=== PATIENT | male | born 1990 | race Caucasian/White ===

== ENCOUNTER → 2021-07-08 16:00 | Outpatient (CLI) | payer MEDICAID, SELFPAY ==
[2021-07-08 19:07] LABS: Basophils # 0.1 K/mm3 (0-0.2); Basophils % 1.3 % (0.1-2.0); Eosinophils # 0.2 K/mm3 (0.0-0.4); Eosinophils % 2.8 % (0.1-12.0); Hematocrit 45.5 % (42.0-52.0); Hemoglobin 15.3 g/dL (14.1-18.0); Lymphocytes # 1.2 K/mm3 (0.7-4.5); Lymphocytes % 21.8 % (10-50); Mean Corpuscular HGB Conc 33.5 g/dL (31.8-35.4); Mean Corpuscular Hemoglobin 31.5 pg (27.0-31.2); Mean Corpuscular Volume 93.8 fl (80-94); Mean Platelet Volume 8.9 fl (7.4-10.4); Monocytes # 0.2 K/mm3 (0.1-1.0); Monocytes % 4.2 % (1.7-9.3); Platelet Count 351 K/mm3 (142-424); Red Blood Count 4.85 M/mm3 (4.60-6.20); Red Cell Distribution Width 13.9 % (11.5-17.5); White Blood Count 5.7 K/mm3 (4.8-10.8)
[2021-07-08 19:11] LABS: Alanine Aminotransferase 46 U/L (12-78); Albumin Level 4.5 g/dl (3.5-5.0); Alkaline Phosphatase 76 U/L (38-126); Anion Gap 11.9 mEq/L (5-15); Aspartate Amino Transferase 31 U/L (17-59); Bilirubin,Total 0.8 mg/dl (0.2-1.3); Blood Urea Nitrogen 6 mg/dl (9-20); Calcium 9.9 mg/dl (8.4-10.2); Carbon Dioxide 29 mmol/L (22.0-30.0); Chloride 101 mmol/L (98-107); Chol/HDL Ratio 2.3 (1-3.5); Cholesterol 164 mg/dl (140-200); Estimated Glomerular Filt Rate 114 ml/min (>60); GFR (African American) 137 ML/MIN (>60); Globulin 2.3 g/dL (1.3-3.2); Glucose 105 mg/dl (74-100); HDL Cholesterol 70 mg/dl (40-60); Potassium 3.9 mmoL/L (3.5-5.1); Sodium 138 mmol/L (136-145); Total Protein,Serum 6.8 g/dl (6.3-8.2); Triglycerides 61 mg/dl (30-150); VLDL Cholesterol 12 mg/dL (0-40)
[2021-07-08 19:22] LABS: Direct LDL Cholesterol 71.82 mg/dL (100-129)
[2021-07-08 19:28] LABS: T4 (Thyroxine) 7.3 ug/dl (5.53-11.0)
[2021-07-08 19:29] LABS: 25-OH Vitamin D, Total 22.2 ng/mL (30-100)
[2021-07-08 19:42] LABS: Thyroid Stimulating Hormone 0.34 uIU/mL (0.465-4.68)
== END ==
PROVIDERS: Visit Provider Nurse Practitioner Family
DX: K46.9 Unspecified abdominal hernia without obstruction or gangrene (principal); N63.0 Unspecified lump in unspecified breast; R91.1 Solitary pulmonary nodule; E55.9 Vitamin D deficiency, unspecified
CPT/HCPCS: 80053; 80061; 82306; 84436; 84443; 85025

== ENCOUNTER → 2021-07-25 09:44 | Outpatient (CLI) | payer MEDICAID, SELFPAY ==
--- NOTE | 2021-07-25 09:48 | CT_ITS ---
FINAL REPORT TECHNIQUE: Thin section axial images were obtained from the lung apices through the upper abdomen without contrast. This study was performed with techniques to keep radiation doses as low as reasonably achievable (ALARA). Individualized dose reduction techniques using automated exposure control or adjustment of mA and/or kV according to the patient's size were employed. CLINICAL HISTORY: Abnormal Chest CT, nonsmoker, no chest complaints FINDINGS: There is no mediastinal, hilar, or axillary lymphadenopathy. There is no pleural or pericardial effusion. A small hiatal hernia is present. There is a 3 mm subpleural left lower lobe nodule on image 64. The lungs are otherwise clear. There is no consolidation. Limited, unenhanced evaluation of the upper abdomen demonstrates a small left adrenal nodule. There is no acute osseous abnormality. IMPRESSION: No acute intrathoracic abnormality. Tiny subpleural left lower lobe nodule likely of no significance. Left adrenal nodule is likely an adenoma in the absence of known malignancy. Reviewed, Interpreted and Dictated by Irene Floyd MD Transcribed by Robbi Negro Authenticated by Irene Floyd MD on 07/25/2021 11:06:51 AM [facility]
== END ==
PROVIDERS: PCP Emergency Medicine; Visit Provider Nurse Practitioner Family
DX: R91.1 Solitary pulmonary nodule (principal)
CPT/HCPCS: 71250

== ENCOUNTER → 2021-09-15 13:41 | Outpatient (CLI) | payer MEDICAID, SELFPAY ==
--- NOTE | 2021-09-15 13:44 | MM_ITS ---
PROCEDURE INFORMATION: Exam: Bilateral Diagnostic Breast Tomosynthesis Exam date and time: 09/15/2021 1:43 PM Age: 30 years old Clinical indication: The patient states that he is felt numerous bilateral breast nodules since he was a kid. Bilateral breast palpable lumps TECHNIQUE: Imaging protocol: Bilateral Diagnostic tomosynthesis and 2D mammography including computer-aided detection (CAD) when performed. Unilateral or bilateral exam. COMPARISON: No relevant prior studies available. FINDINGS: MAMMOGRAPHY: There are scattered areas of fibroglandular density. No mass, architectural distortion, or suspicious calcifications have developed to suggest malignancy. No axillary adenopathy. IMPRESSION: No mammographic evidence of malignancy. Clinical follow-up is recommended regarding the patient's numerous bilateral palpable lumps. If a new or dominant palpable lump were to developed, then targeted ultrasound could be considered for further characterization ASSESSMENT: BI-RADS Category 1: Negative
== END ==
PROVIDERS: PCP Emergency Medicine; Visit Provider Nurse Practitioner Family
DX: N62 Hypertrophy of breast (principal); N63.10 Unspecified lump in the right breast, unspecified quadrant; N63.20 Unspecified lump in the left breast, unspecified quadrant
CPT/HCPCS: 77062; 77066; G0279

== ENCOUNTER 2021-12-01 16:53 | Emergency (ER) | payer MEDICAID, SELFPAY ==
[2021-12-01 17:00] VITALS: BP 135/92; PULSE 95; RESP 16; TEMP 36.9; O2SAT 98; BMI 29.6
--- NOTE | 2021-12-01 17:11 | EXP.UTC ---
Discharge Plan Disposition Patient Disposition: Home, Self-Care Condition: Good Prescriptions Prescriptions: New methylprednisolone 4 mg Tablets,Dose Pack 4 mg PO DIRECTED Qty: 21 0RF azithromycin [Zithromax] 250 mg tablet 250 mg PO UD DOSE PK Qty: 6 0RF Rx Instructions: Take two (2) tablets today, then one (1) tablet days #2 thru #5 No Action cholecalciferol (vitamin D3) 1,250 mcg (50,000 unit) tablet 1,250 mcg PO WEEKLY Qty: 7 2RF cholecalciferol (vitamin D3) 50 mcg (2,000 unit) capsule 50 mcg PO DAILY 30 Days Qty: 30 4RF Referrals Follow up/Referrals: Amari Galeana MD [Primary Care Provider] - See instructions Activity Restrictions/Add. Instructions Additional Instructions/Restrictions: Drink plenty of fluids. Take tylenol or ibuprofen for pain or fever. Take the medications as directed. Follow up with your regular doctor. GO TO THE ER FOR ANY WORSENING SYMPTOMS Clinical Impressions Clinical Impression: Pharyngitis Instructions Patient Instructions: Strep Throat, DI for Strep Throat Discharge ED Provider: Seth Gunderson [facility] General Stated complaint: mouth and throat pain Mode of Arrival: Ambulatory Source of Information: Patient Limitations: No Limitations Time Seen by Provider: 12/01/21 17:09 Description of Symptoms (Recalled from Triage Doc. by RN): PATIENT C/O SORE THROAT, FEVER AND HEADACHE THAT STARTED ON WEDNESDAY HEENT Symptoms (Recalled from RN notes): Yes Resp Symptoms (Recalled from RN notes): No Skin Symptoms (Recalled from RN notes): No MS Symptoms (Recalled from RN notes): No Functional Status (Recalled from RN notes): WNL History of Present Illness Provider Complaint: He states that he has had a sore throat for the past 2 days. Related Data Previous Rx's Medication Instructions Recorded cholecalciferol (vitamin D3) 1,250 1,250 mcg PO WEEKLY #7 tabs 07/09/21 mcg (50,000 unit) tablet cholecalciferol (vitamin D3) 50 50 mcg PO DAILY 30 days #30 caps 07/09/21 mcg (2,000 unit) capsule azithromycin 250 mg tablet 250 mg PO UD DOSE PK #6 tabs 12/01/21 (Zithromax) methylprednisolone 4 mg tablets in 4 mg PO DIRECTED #21 tabs 12/01/21 a dose pack Allergies Allergy/AdvReac Type Severity Reaction Status Date / Time Penicillins [PENICILLINS] Allergy Intermediate Verified 08/19/21 10:27 fluoxetine [From Prozac] Allergy Mild Hives Verified 08/19/21 10:27 sertraline [From Zoloft] Allergy Mild Hives Verified 08/19/21 10:27 Worker's Comp Is this a Worker's Comp case?: No PFSH PFSH Medical History Anxiety Depression Migraine Social History Smoking Status: Never smoker alcohol intake: current substance use type: denies use current occupational status: unemployed Travel in the last 8 weeks: None household members: family housing: house ROS Obtained: Yes All systems reviewed & no additional complaints except as documented Constitutional Constitutional: Reports chills and Reports fever(s) Eyes Eyes: Denies eye discharge ENT Ears, Nose, Mouth, and Throat: Reports as per HPI Cardiovascular Cardiovascular: Denies chest pain Respiratory Respiratory: Denies chest congestion and Reports cough Gastrointestinal Gastrointestingal: Reports nausea; Denies abdominal pain, constipation, cramping, diarrhea or vomiting Musculoskeletal Musculoskeletal: Denies arthralgias Integumentary/Breasts Skin/Breast: Denies rash Neurologic Neurologic: Denies paresthesias Physical Exam General General appearance: alert and in no apparent distress Head Head exam: atraumatic, normocephalic and normal inspection Eye Eye exam: Present normal appearance, PERRL and EOMI ENT ENT exam: Present mucous membranes moist and normal external ear exam Expanded ENT Exam TM/Canal exam: Bilateral TM: erythema and bulging Nose exam: Absent sin
[2021-12-01 17:19] LABS: UTC Strep Screen (Rapid) Negative (Negative)
[2021-12-01 17:48] VITALS: BP 135/92; PULSE 95; RESP 16; TEMP 36.9; O2SAT 98
== END 2021-12-01 17:51 | disposition home or self-care (01) ==
PROVIDERS: Emergency Provider Nurse Practitioner Family; PCP Emergency Medicine
DX: J02.9 Acute pharyngitis, unspecified (principal); R50.9 Fever, unspecified; G43.909 Migraine, unspecified, not intractable, without status migrainosus; F32.A Depression, unspecified; F41.9 Anxiety disorder, unspecified; Z79.52 Long term (current) use of systemic steroids; Z88.0 Allergy status to penicillin; Z88.1 Allergy status to other antibiotic agents; Z88.3 Allergy status to other anti-infective agents; Z88.8 Allergy status to other drugs, medicaments and biological substances
CPT/HCPCS: 87880; 99213; G0463

== ENCOUNTER → 2022-03-19 11:00 | Outpatient (CLI) | payer MEDICAID, SELFPAY | PROVIDERS: PCP Nurse Practitioner Family; Visit Provider Nurse Practitioner Family | DX: N50.819 Testicular pain, unspecified (principal) | CPT/HCPCS: 87086 ==

== ENCOUNTER → 2022-03-31 10:20 | Outpatient (CLI) | payer MEDICAID, SELFPAY ==
--- NOTE | 2022-03-31 10:20 | US_ITS ---
FINAL REPORT TECHNIQUE: Ultrasound images of the testicles were obtained bilaterally. Color Doppler images were obtained. CLINICAL HISTORY: .rt test pain x 2 mos FINDINGS: The testicles are normal in size and echotexture bilaterally. Arterial flow is identified bilaterally. No intratesticular masses are identified. There is a small epididymal cyst in the right epididymis. IMPRESSION: Small right epididymal cyst, otherwise unremarkable. Reviewed, Interpreted and Dictated by Satinder Law III, MD Transcribed by Kaylee Faith Authenticated and [facility]
== END ==
PROVIDERS: PCP Nurse Practitioner Family; Visit Provider Nurse Practitioner Family
DX: N50.811 Right testicular pain (principal)
CPT/HCPCS: 76870

== ENCOUNTER 2023-04-10 10:23 | Inpatient (IN) | payer MEDICAID, SELFPAY ==
[2023-04-10] VITALS (13 sets, daily range): BP systolic 89–120; BP diastolic 44–70; PULSE 51–70; RESP 10–21; TEMP 36.7–36.9; O2SAT 97–100; BMI 21.5
--- NOTE | 2023-04-10 10:39 | PC.NURSE ---
Dr. Perkins at BS
--- NOTE | 2023-04-10 10:45 | PC.NURSE ---
pt unable to urinate and RN bladder scanned and it showed 500ml
[2023-04-10 10:47] LABS: Alanine Aminotransferase 87 U/L (12-78); Albumin Level 4.6 g/dl (3.5-5.0); Albumin/Globulin Ratio 1.4 (1.1-1.8); Alkaline Phosphatase 133 U/L (38-126); Aspartate Amino Transferase 65 U/L (17-59); Bilirubin,Total 0.9 mg/dl (0.2-1.3); Blood Urea Nitrogen 14 mg/dl (9-20); Calcium 9.6 mg/dl (8.4-10.2); Carbon Dioxide 23 mmol/L (22.0-30.0); Chloride 105 mmol/L (98-107); Creatinine Clearance Estimated 102 mL/min (50-200); Estimated Glomerular Filt Rate 87 ml/min (>60); GFR (African American) 105 ML/MIN (>60); Globulin 3.4 g/dL (1.3-3.2); Glucose 133 mg/dl (74-100); Sodium 140 mmol/L (136-145)
[2023-04-10 10:50] LABS: Basophils # 0.1 K/mm3 (0-0.2); Basophils % 0.3 % (0.1-2.0); Eosinophils # 0.2 K/mm3 (0.0-0.4); Eosinophils % 1.1 % (0.1-12.0); Hematocrit 47.1 % (42.0-52.0); Hemoglobin 16.5 g/dL (14.1-18.0); Lymphocytes # 1.2 K/mm3 (0.7-4.5); Lymphocytes % 7.3 % (10-50); Mean Corpuscular HGB Conc 35.1 g/dL (31.8-35.4); Mean Corpuscular Hemoglobin 31.1 pg (27.0-31.2); Mean Corpuscular Volume 88.6 fl (80-94); Mean Platelet Volume 8.9 fl (7.4-10.4); Monocytes # 0.8 K/mm3 (0.1-1.0); Monocytes % 4.8 % (1.7-9.3); Neutrophils # 13.7 K/mm3 (1.8-7.8); Neutrophils % 86.4 % (37.0-80.0); Platelet Count 459 K/mm3 (142-424); Red Blood Count 5.31 M/mm3 (4.60-6.20); Red Cell Distribution Width 15.2 % (11.5-17.5); White Blood Count 15.9 K/mm3 (4.8-10.8)
--- NOTE | 2023-04-10 10:50 | ED_ITS ---
Discharge Plan Disposition Chief Complaint: Weakness Clinical Impressions Clinical Impression: Hypokalemic periodic paralysis Discharge ED Provider: Tammy Perkins General Adult HPI General Chief complaint: Weakness Stated complaint: Weakness Time Seen by Provider: 04/10/23 10:30 Mode of Arrival: EMS Source of Information: Patient and EMS Limitations: No Limitations Description of Symptoms (Recalled from ER Triage Doc. by RN): pt states on wednesday he noticed cramping his shoulders and it has slowly gotten worse througho ut the week and began cramping all over his body. today he was unable to stand due to weakness, fatigue, pt denies any injuries or PMH. ems gave 4 mg zofran and 500 ml NS bolus en route History of Present Illness HPI narrative: Is a 32-year-old male previously healthy who had a preceding upper respiratory viral infection last week with some congestion he started having some cramping on Wednesday of this week with progressive weakness in bilateral upper and lower extremities. Upper extremities are weaker out of proportion to his lower extremities. All 4 extremities are involved and have been progressively worsening. States his left lower extremity is a little bit stronger than his right. He is to the point now he cannot walk. States he has normal sensation. Denies any history of severe anxiety or stress vomiting diarrhea etc. No history of severe electrolyte abnormalities in the past or any other medical problems. Related Data Allergies Allergy/AdvReac Type Severity Reaction Status Date / Time Penicillins [PENICILLINS] Allergy Intermediate Verified 03/19/22 15:45 fluoxetine [From Prozac] Allergy Mild Hives Verified 03/19/22 15:45 sertraline [From Zoloft] Allergy Mild Hives Verified 03/19/22 15:45 PFSH PFSH Disclaimer: The information contained in this section may have been updated after the patient was seen, as this information can be updated by other users. Medical History Anxiety Depression Migraine Social History Smoking Status: Never smoker alcohol intake: current substance use type: denies use current occupational status: unemployed Travel in the last 8 weeks: None household members: family housing: house ROS Obtained: Yes All systems reviewed & no additional complaints except as documented Physical Exam General General appearance: alert Respiratory Respiratory exam: Present normal lung sounds bilaterally Cardiovascular Cardiovascular exam: Present bradycardia Neurological Exam Neurological exam: Present other (3 out of 5 strength in proximal and distal muscles in the upper extremities bilaterally 3-5 strength in the right lower extremity 4-5 strength left lower extremity sensory exam is normal he is a reflexive in the upper extremities has normal reflexes bilateral lower extremities) Medical Decision Making Augusto Inquiry Pt receiving controlled substance: No Vital Signs: 04/10/23 10:24 04/10/23 11:00 Temperature 98.0 F Temperature Source Oral Pulse Rate 53 L Pulse Rate [Right Radial] 60 Respiratory Rate 18 11 L Blood Pressure 120/67 Blood Pressure [Right Arm] 116/70 Blood Pressure Mean [Right Arm] 85 02 Sat by Pulse Oximetry 100 99 Oxygen Delivery Method Room Air Room Air Lab Data Lab results reviewed: Yes I reviewed the patient's lab results. Lab Results 04/10/23 10:30: WBC 15.9 H, RBC 5.31, Hgb 16.5, Hct 47.1, MCV 88.6, MCH 31.1, MCHC 35.1, RDW 15.2, Plt Count 459 H, MPV 8.9, Neut % (Auto) 86.4 H, Lymph % (Auto) 7.3 L, [place] % (Auto) 4.8, Eos % (Auto) 1.1, Baso % (Auto) 0.3, Neut # (Auto) 13.7 H, Lymph # (Auto) 1.2, [place] # (Auto) 0.8, Eos # (Auto) 0.2, Baso # (Auto) 0.1, Sodium 140, Potassium 1.7 L*, Chloride 105, Carbon Dioxide 23, Anion Gap 13.7, BUN 14, Creatinine 1.00, Estimated Creat Clear 102, Estimated GFR 87, Est GFR ( Amer) 105, Glucose 133 H, Calcium 9.6, Phosphorus 1.9 L, Magnesium 2.3, Total Bilirubin 0.9, AST 65 H, ALT 87 H, Alkaline Phosphatase 133 H, Total Creatine Kinase 921 H*, Troponin I 0.05 H, C-Reactive Protein 14.6 H, Total Protein 8.0, Albumin 4.6, Globulin 3.4 H, Albumin/Globulin Ratio 1.4 04/10/23 10:57: Urine Color Yellow, Urine Appearance Clear, Urine pH 7.5, Ur Specific [place] 1.010, Urine Protein 1+, Urine Glucose (UA) Negative, Urine Ketones Negative, Urine Blood Trace-i, Urine Nitrate Negative, Urine Bilirubin Negative, Urine Urobilinogen 0.2, Ur Leukocyte Esterase Negative 04/10/23 10:30 04/10/23 10:30 Orders (Tests/Meds): ED MEDICATIONS Generic Name Dose Route Start Last Admin Trade Name Freq PRN Reason Stop Dose Admin Potassium Chloride 30 meq 04/10/23 11:12 04/10/23 11:29 Potassium Chloride 20meq/15ml Udc PO 05/10/23 11:11 30 meq [id number] PRN Administration MUSCLE WEAKNESS ORDERS Category Date Time Status CK [Creatine Kinase] Stat Lab 04/10/23 10:30 Completed CRP [C-Reactive Protein] Stat Lab 04/10/23 10:30 Completed Complete Blood Count Auto Diff Stat Lab 04/10/23 10:30 Results Comprehensive Metabolic Panel Stat Lab 04/10/23 10:30 Completed ESR [Erythrocyte Sedimentation Rate] Stat Lab 04/10/23 10:30 Received Full Resp Panel w/COVID ([facility]) Routine Lab 04/10/23 11:15 Received Magnesium Stat Lab 04/10/23 10:30 Completed Phosphorous Stat Lab 04/10/23 10:30 Completed Troponin I Q3H Lab 04/10/23 13:45 Ordered Troponin I Q3H Lab 04/10/23 16:45 Ordered Troponin I Stat Lab 04/10/23 10:30 Completed UA [Urinalysis and Microscopic] Stat Lab 04/10/23 10:57 Results Medical Decision Narrative: Patient is a 32-year-old male presenting today with progressive muscular weakness in the bilateral upper and lower extremities. He is a reflexive in his upper extremities has some urinary retention also has relatively preserved sensory exam. This is consistent with Guillain-Hill? syndrome. Will get basic blood work including inflammatory markers and metabolic analysis to make sure this is not also paralysis from hypokalemia etc. Will anticipate doing a lumbar puncture and possibly transferring the patient for definitive care for this as we do not offer the services at [facility]. Reassessment 11:34 AM. Patient has a critically low potassium this is consistent with hypokalemic periodic paralysis making Guillain-Hill? less likely. Will replace potassium 30 mill equivalents every 30 minutes until symptoms resolve. Speaking to the patient further his father had a similar episode earlier in life which makes this most likely a familial issue. He has never had an episode before. EKG was performed to person interpreted shows sinus bradycardia with a ventricular rate of 47 there is a sinus pause I do not see any dropped beats no acute ischemic changes noted there is a normal axis. Patient will need to remain on a body maker machine setter and will need to be admitted for serial monitoring of his potassium and ensure resolution of his symptoms. Guillain-Hill? is less likely as are other neurologic related conditions at this point. But not completely ruled out. Will admit the patient for replacement of potassium and cardiac monitoring. Critical Care Critical Care Time Critical Care Time: Yes Attestation: On 04/10/23, the high probability of a clinically significant, sudden or life threatening deterioration of the following system(s) required my full and direct attention, intervention and personal management. The time I documented below is in addition to time spent performing reported procedures but includes the following listed in this critical care notation. Total Time Total Critical Care Time: 35
[2023-04-10 10:55] LABS: Anion Gap 13.7 mEq/L (5-15); MANUAL DIFFERENTIAL MANUAL DIFFERENTIAL (MANUAL DIFF); Potassium 1.7 mmoL/L (3.5-5.1)
--- NOTE | 2023-04-10 10:55 | ECG_ITS ---
APPROVED REPORT Exam: Resting ECG HR:47 bpm ECG Measurements Heart Rate 47 AXES QRSd 109 QRS 87 QT 271 T 76 QTc 234 Conclusion SINUS BRADYCARDIA WITH 2ND DEGREE AV BLOCK, 2:1 OR MOBITZ TYPE II NONSPECIFIC T-WAVE ABNORMALITY CRITICAL TEST RESULT UNCONFIRMED REPORT Electronically signed by : Sylvain Alston MD 04/10/2023 19:52:58
[2023-04-10 10:59] LABS: Troponin I 0.05 ng/ml (0.00-0.034)
[2023-04-10] MEDS: POTASSIUM CHLORIDE 10MEQ CAPSULE.ER 10 MEQ PO (11:00)
[2023-04-10] MEDS: POTASSIUM CHLORIDE 20MEQ TAB 20 MEQ PO (11:00)
[2023-04-10 11:03] LABS: Creatine Kinase 921 U/L (55-170)
[2023-04-10 11:04] LABS: Magnesium 2.3 mg/dl (1.6-2.3)
[2023-04-10 11:06] LABS: Phosphorous 1.9 mg/dl (2.5-4.5)
--- NOTE | 2023-04-10 11:08 | PC.NURSE ---
LAB called to report critical phosphorus of 1.9 to Bubba Mark RN. Repeated and confirmed.
[2023-04-10 11:09] LABS: C-Reactive Protein 14.6 mg/L (0-4)
[2023-04-10 11:19] LABS: Microscopic, Urine URINE MICROSCOPIC (MICROSCOPIC)
[2023-04-10 11:21] LABS: Adenovirus,PCR Not Detected (NotDetected); Coronavirus 19, PCR Not Detected (NotDetected); Coronavirus 229E Not Detected (NotDetected); Coronavirus NL63 Not Detected (NotDetected); Coronavirus OC43 Not Detected (NotDetected); Coronovirus HKU1,PCR Not Detected (NotDetected); Human Metapneumovirus Not Detected (NotDetected); Influenza A, PCR Not Detected (NotDetected); Influenza AH1, 2009 Not Detected (NotDetected); Influenza AH1, PCR Not Detected (NotDetected); Influenza AH3,PCR Not Detected (NotDetected); Influenza B, PCR Not Detected (NotDetected); Parainfluenza 1, PCR Not Detected (NotDetected); Parainfluenza 2, PCR Not Detected (NotDetected); Parainfluenza 3, PCR Not Detected (NotDetected); Parainfluenza 4, PCR Not Detected (NotDetected); Respiratory Syncytial Virus Not Detected (NotDetected); Rhinovirus/Enterovirus Not Detected (NotDetected)
[2023-04-10 11:23] LABS: Appearance,Urine CLEAR (Clear); Bilirubin,Urine Negative (Negative); Blood, Urine TRACE-I (Negative); Color,Urine YELLOW (Yellow); Glucose,Urine (UA) Negative (Negative); Ketones,Urine Negative (Negative); Leukocyte Esterase,Urine Negative (Negative); Nitrate,Urine Negative (Negative); PH,Urine 7.5 (5.0-8.5); Protein,Urine 1+ (Negative); Urobilinogen,Urine 0.2 EU/dl (0.2)
[2023-04-10] MEDS: POTASSIUM CHLORIDE 20MEQ/15ML UDC 30 MEQ PO ×7 (11:29→16:14)
[2023-04-10 11:34] LABS: Lymphocytes % 9 % (10-50); Monocytes % 3 % (2-9); Neutrophils % 88 % (42-76); RBC Morphology Normal; Total Cells Counted 100
[2023-04-10 11:35] LABS: Bacteria,Urine Trace /lpf; RBC,Urine Occasional #/hpf (0-3); Squamous Epithelial Cell,Urine Occasional #/hpf (0-5)
[2023-04-10 11:36] LABS: Platelet Estimate Slight Increase
--- NOTE | 2023-04-10 11:51 | PC.NURSE ---
CANAL STRUCTURE OPERATOR NOTIFIED OF ADMISSION
--- NOTE | 2023-04-10 12:00 | P.HP_ITS ---
History of Present Illness *Admission Date: 04/10/23 *Reason for visit:: weakness, ascending paralysis, muscle cramps *History of present illness: Mr. Treviño is a 32-year-old male with previously benign past medical history. States that for the past week he has been noticing cramping that has progressed and gotten worse. Began in his shoulders and his legs. Has progressed with weakness in his legs and over the past 2 days having weakness in his arms. Came to the ER for further evaluation. Denies chest pain, shortness of breath, nausea or vomiting. Can move his toes but legs are very heavy and unable to walk. Does report an illness maybe a week ago with some congestion. Denies any fever or headache. ER concern for Guillain-Hill? initially. Workup showed severely depleted potassium at 1.7. Phosphorus 1.9. Patient does have reflexes in the lower extremities and movement of his feet. No respiratory distress. Symptoms most consistent with hypokalemic periodic paralysis. Initiated on oral repletion and medicine was consulted for admission. On arrival to the floor, patient is stable on room air. Tolerating p.o. intake with no nausea or vomiting. Monitoring on telemetry. Family at bedside. Reports his dad had a similar episode many years ago but no other known family history. [facility] Disclaimer: The information contained in this section may have been updated after the patient was seen, as this information can be updated by other users. Medical History Anxiety Depression IBS (irritable bowel syndrome) Male circumcision Migraine Family History [place] War syndrome Heart murmur VSD (ventricular septal defect) Hypokalemia Social History Smoking Status: Never smoker alcohol intake: former substance use type: denies use current occupational status: unemployed Travel in the last 8 weeks: None household members: family housing: house Review of Systems Review of Systems Review of systems (narrative): 14 point review of systems performed, pertinent positives and negatives as per HPI Meds Home Medications and Allergies Home Medications Medication Instructions Recorded Confirmed Type oxybutynin chloride 5 mg 5 mg PO DAILY URINARY SYMPTOMS 04/10/23 04/10/23 History tablet,extended release 24 hr New Prescriptions to Start Prescriptions: Allergies Allergy/AdvReac Type Severity Reaction Status Date / Time Penicillins [PENICILLINS] Allergy Intermediate Verified 03/19/22 15:45 fluoxetine [From Prozac] Allergy Mild Hives Verified 03/19/22 15:45 sertraline [From Zoloft] Allergy Mild Hives Verified 03/19/22 15:45 Exam Data for Last 24 hours Vital signs and Labs for Last 24 Hours: Temp Pulse Resp BP Pulse Ox O2 Del Method 98.0 F 53 L 11 L 120/67 99 Room Air 04/10/23 10:24 04/10/23 11:00 04/10/23 11:00 04/10/23 11:00 04/10/23 11:00 04/10/23 11:00 Laboratory Results - last 24 hr 04/10/23 10:30: WBC 15.9 H, RBC 5.31, Hgb 16.5, Hct 47.1, MCV 88.6, MCH 31.1, MCHC 35.1, RDW 15.2, Plt Count 459 H, MPV 8.9, Neut % (Auto) 86.4 H, Lymph % (Auto) 7.3 L, [place] % (Auto) 4.8, Eos % (Auto) 1.1, Baso % (Auto) 0.3, Neut # (Auto) 13.7 H, Lymph # (Auto) 1.2, [place] # (Auto) 0.8, Eos # (Auto) 0.2, Baso # (Auto) 0.1, Total Counted 100, Neutrophils % (Manual) 88 H, Lymphocytes % (Manual) 9 L, Monocytes % (Manual) 3, Platelet Estimate Slight increase, RBC Morphology Normal, Sodium 140, Potassium 1.7 L*, Chloride 105, Carbon Dioxide 23, Anion Gap 13.7, BUN 14, Creatinine 1.00, Estimated Creat Clear 102, Estimated GFR 87, Est GFR ( Amer) 105, Glucose 133 H, Calcium 9.6, Phosphorus 1.9 L, Magnesium 2.3, Total Bilirubin 0.9, AST 65 H, ALT 87 H, Alkaline Phosphatase 133 H, Total Creatine Kinase 921 H*, Troponin I 0.05 H, C- Reactive Protein 14.6 H, Total Protein 8.0, Albumin 4.6, Globulin 3.4 H, Albumin/Globulin Ratio 1.4 04/10/23 10:57: Urine Color Yellow, Urine Appearance Clear, Urine pH 7.5, Ur Specific [place] 1.010, Urine Protein 1+, Urine Glucose (UA) Negative, Urine Ketones Negative, Urine Blood Trace-i, Urine Nitrate Negative, Urine Bilirubin Negative, Urine Urobilinogen 0.2, Ur Leukocyte Esterase Negative, Urine RBC Occasional, Urine WBC None, Ur Squamous Epith Cells Occasional, Urine Bacteria Trace I & O for Last 24 hours: Intake & Output 04/07/23 04/08/23 04/09/23 04/10/23 23:59 23:59 23:59 23:59 Weight 68.039 kg Constitutional Constitutional: mild distress, average body habitus and cooperative *Routine HEENT Exam Head: Present normocephalic Eye: Present EOMI and PERRL ENT: Present mucous membranes moist *Routine Neck Exam Neck: Present supple; Absent lymphadenopathy *Routine Respiratory Exam Respiratory: Present CTA bilaterally *Routine Cardiovascular Exam Cardiovascular: Present RRR *Routine Abdominal Exam Abdominal: Present soft and normoactive bowel sounds; Absent tenderness *Routine Rectal Exam Rectal:: deferred *Routine Genitalia Exam Genitalia:: deferred *Routine Extremities Exam Extremities: Absent cyanosis, clubbing or edema Comments: Weak *Routine Skin Exam Skin: Present warm; Absent rash *Routine Neurological Exam Neurological: Present alert, oriented X3, motor deficit, normal reflexes and moving all extremities; Absent sensory deficit or altered mental status Comments: Generalized weakness in upper and lower extremities, unable to stand. Can wiggle toes, globally strength 3/5 in upper and lower extremities, human resources analyst strength 4/5. Assessment and Plan *Assessment and plan (1) Hypokalemic periodic paralysis: Status: Acute Category: Medical Code(s): G72.3 - Periodic paralysis (2) Generalized weakness: Status: Acute Category: Medical Code(s): R53.1 - Weakness (3) Hypophosphatasia: Status: Acute Category: Medical Code(s): E83.39 - Other disorders of phosphorus metabolism Plan 32-year-old male who presents with progressive ascending weakness. Severely depleted potassium and phosphorus. Concern for periodic paralysis due to hypokalemia. Discussed case with ER, request admission for aggressive repletion and monitoring for respiratory or cardiac collapse. Patient admitted to stepdown level of care. Continues to require inpatient management. Problems addressed as follows: Hypokalemic periodic paralysis Generalized weakness Hypophosphatemia -Potassium 1.7, phosphorus 1.9. Aggressive repletion with 30 mEq every 30 minutes x 10. Repeat labs in 6 hours to evaluate potassium and phosphorus level. Will obtain magnesium level at that time -Repeat CBC, CMP, magnesium ordered for the morning -respiratory consulted for negative inspiratory force evaluation -IV K-Phos for phosphorus repletion -Vitamin D level pending in the morning -Elevated CK likely related to electrolyte disturbances and paralysis -Repeat CK ordered for the morning Regular diet Full code
[2023-04-10 12:08] LABS: Erythrocyte Sedimentation Rate 21 mm/hr (0-15)
[2023-04-10] MEDS: POTASSIUM PHOSPHATE 9 MMOL in 0.9 % SODIUM CHLORIDE 250 ML 63.75 MMOL IV (12:20)
--- NOTE | 2023-04-10 12:36 | PC.NURSE ---
Gave report to rashad HILTON and answered all questions
--- NOTE | 2023-04-10 12:55 | PC.NURSE ---
Pt admitted to hospitalist with hypokalemic paralysis, stepdown
--- NOTE | 2023-04-10 13:00 | PC.NURSE ---
PT ADMITTED TO 217 FROM ED VIA STRETCHER, PT HAS CARNES CATHETER IN PLACE AND BILATERAL PIV'S, PT ALERT AND ORIENTED, PT HAS GROSS MOTOR BUT NOT MUCH FINE MOTOR SKILLS, PT VERY WEAK AND UNABLE TO HOLD EXTREMITIES UP ON OWN, PT'S RIGHT PUPIL LARGER THAN LEFT BUT BOTH BRISK AND REACTIVE, PLACED PT ON TELEMETRY, FAMILY MEDICINE RESIDENT ASKING PT ADMISSION QUESTIONS AT THIS TIME, CALL LIGHT WITHIN REACH
--- NOTE | 2023-04-10 13:11 | PC.NURSE ---
MD HERNANDEZ ROUNDING AT BEDSIDE, SPEAKING WITH PT AND FAMILY MEMBER AT BEDSIDE
--- NOTE | 2023-04-10 13:15 | HMH.PHAINT1 ---
Pharmacy Intervention Comments: MEDICATION RECONCILIATION COMPLETE USING EXTERNAL PHARMACY FILL HISTORY.
[2023-04-10 14:26] LABS: Troponin I 0.06 ng/ml (0.00-0.034)
[2023-04-10] MEDS: ONDANSETRON 4MG/2ML VIAL 4 MG IV (16:46)
--- NOTE | 2023-04-10 16:56 | PC.NURSE ---
Oral potassium opened for administration. Pt then started vomiting. Total of 180ml emesis. PO potassium held and thrown away at this time. Lab now in room to get bloodwork.
[2023-04-10 17:18] LABS: Anion Gap 8.2 mEq/L (5-15); Blood Urea Nitrogen 12 mg/dl (9-20); Calcium 8.4 mg/dl (8.4-10.2); Carbon Dioxide 18 mmol/L (22.0-30.0); Chloride 115 mmol/L (98-107); Creatinine Clearance Estimated 128 mL/min (50-200); Estimated Glomerular Filt Rate 112 ml/min (>60); GFR (African American) 136 ML/MIN (>60); Glucose 124 mg/dl (74-100); Magnesium 2.4 mg/dl (1.6-2.3); Sodium 139 mmol/L (136-145)
[2023-04-10 17:21] LABS: Phosphorous 1.8 mg/dl (2.5-4.5); Potassium 2.2 mmoL/L (3.5-5.1)
[2023-04-10 17:29] LABS: Troponin I 0.06 ng/ml (0.00-0.034)
[2023-04-10] MEDS: PROMETHAZINE HCL 25MG/ML 1ML VIAL 25 MG IV (18:32)
[2023-04-10] MEDS: SODIUM CHLORIDE 0.9% 25ML BAG 25 ML IV (18:32)
[2023-04-10] MEDS: KCl 10mEq/100ml 100 ML 100 MEQ IV ×3 (19:02→21:20)
[2023-04-10] MEDS: CALCIUM CARBONATE 500MG CHEWTAB 500 MG PO (19:03)
[2023-04-10] MEDS: POTASSIUM PHOSPHATE 15 MMOL in 0.9 % SODIUM CHLORIDE 250 ML 63.75 MMOL IV (19:14)
[2023-04-10] MEDS: GABAPENTIN 100MG CAPSULE 100 MG PO (20:10)
[2023-04-10 21:28] LABS: Free T4 (Free Thyroxine) 0.86 ng/dl (0.78-2.19)
[2023-04-11] VITALS (18 sets, daily range): BP systolic 80–115; BP diastolic 42–73; PULSE 40–100; RESP 13–21; TEMP 36.4–36.8; O2SAT 97–100; BMI 21.4
[2023-04-11] MEDS: PROMETHAZINE HCL 25MG/ML 1ML VIAL 25 MG IV (00:24)
[2023-04-11] MEDS: 0.9 % SODIUM CHLORIDE 1000ML 500 ML 999 ML IV (00:30)
[2023-04-11 00:37] LABS: Anion Gap 9.6 mEq/L (5-15); Blood Urea Nitrogen 11 mg/dl (9-20); Calcium 8.6 mg/dl (8.4-10.2); Carbon Dioxide 18 mmol/L (22.0-30.0); Chloride 114 mmol/L (98-107); Creatinine Clearance Estimated 128 mL/min (50-200); Estimated Glomerular Filt Rate 112 ml/min (>60); GFR (African American) 136 ML/MIN (>60); Glucose 104 mg/dl (74-100); Magnesium 2.4 mg/dl (1.6-2.3); Phosphorous 2.5 mg/dl (2.5-4.5); Sodium 140 mmol/L (136-145)
[2023-04-11 00:40] LABS: Potassium 1.6 mmoL/L (3.5-5.1)
[2023-04-11] MEDS: KCl 20mEq/100ml 100 ML 50 MEQ IV ×3 (01:02→04:40)
[2023-04-11] MEDS: 0.9% NaCl w/40mEq KCL 1,000 ML 100 ML IV ×3 (01:02→21:30)
--- NOTE | 2023-04-11 06:16 | PC.NURSE ---
MAT GAUGER HAS BEEN MADE AWARE OF HYPOTENSION MULTIPLE TIMES; 1 NS BOLUS WAS GIVEN; SEE MAR. MAT GAUGER MADE AWARE OF CONTINUING HYPOTENSION @ 0615 DURING ROUNDS; NO NEW ORDERS AT THIS TIME
--- NOTE | 2023-04-11 08:15 | EXP.ACUTE.PN ---
Subjective *Date: 04/11/23 *Time: 18:19 Interval history: Having some improvement in lower extremity weakness, pain improving. Legs feel less tingly. Improving strength. Nausea improved. Afebrile. Tolerating p.o. intake. Medical Exam Vital signs and Labs for Last 24 Hours: Vital Signs Temp Pulse Pulse Resp BP BP Pulse Ox 04/11/23 08:00 48 L 18 92/61 L 100 04/11/23 07:00 47 L 93/52 L 100 04/11/23 06:00 50 L 13 83/45 L 99 04/11/23 05:00 63 15 96/53 L 99 04/11/23 04:00 97.5 F L 62 14 80/50 L 99 04/11/23 03:00 53 L 15 88/50 L 98 04/11/23 02:00 46 L 15 89/47 L 98 04/11/23 01:00 90/53 L 04/11/23 00:00 98.1 F 43 L 15 87/42 L 99 04/10/23 23:00 100/44 L 04/10/23 22:00 51 L 15 89/48 L 97 04/10/23 21:00 95/49 L 04/10/23 20:00 98.4 F 54 L 14 101/57 L 99 04/11/23 05:00 04/11/23 03:00 04/11/23 04:00 46 L 15 80/50 L 98 04/11/23 04:00 04/11/23 04:00 50 L 04/11/23 01:00 04/11/23 02:00 46 L 15 89/47 L 98 04/11/23 00:00 98.1 F 43 L 14 87/42 L 99 04/10/23 23:00 04/10/23 22:00 51 L 17 89/48 L 97 04/10/23 21:00 04/10/23 20:00 98.4 F 54 L 17 101/57 L 04/10/23 20:00 04/10/23 18:46 04/10/23 18:00 67 21 101/64 L 97 04/10/23 16:00 64 17 105/69 L 98 04/10/23 16:00 70 04/10/23 16:44 04/10/23 16:00 98.0 F 04/10/23 14:59 100 04/10/23 14:57 04/10/23 14:00 61 21 98/57 L 99 04/10/23 13:00 04/10/23 12:46 98.0 F 54 L 16 105/53 L 04/10/23 12:30 54 L 12 105/53 L 99 04/10/23 11:30 52 L 10 L 95/54 L 98 04/10/23 11:00 53 L 11 L 120/67 99 04/10/23 10:24 98.0 F 60 18 116/70 100 O2 Del Method O2 Flow Rate 04/11/23 08:00 Room Air 04/11/23 07:00 Room Air 04/11/23 06:00 Room Air 04/11/23 05:00 Room Air 04/11/23 04:00 Room Air 04/11/23 03:00 Room Air 04/11/23 02:00 Room Air 04/11/23 01:00 04/11/23 00:00 Room Air 04/10/23 23:00 04/10/23 22:00 Room Air 04/10/23 21:00 04/10/23 20:00 Room Air 04/11/23 05:00 Room Air 04/11/23 03:00 Room Air 04/11/23 04:00 Room Air 04/11/23 04:00 Room Air 04/11/23 04:00 04/11/23 01:00 Room Air 04/11/23 02:00 Room Air 04/11/23 00:00 Room Air 04/10/23 23:00 Nasal Cannula 2 04/10/23 22:00 Nasal Cannula 2 04/10/23 21:00 Room Air 04/10/23 20:00 04/10/23 20:00 Room Air 04/10/23 18:46 Room Air 04/10/23 18:00 Room Air 04/10/23 16:00 Room Air 04/10/23 16:00 04/10/23 16:44 Room Air 04/10/23 16:00 04/10/23 14:59 Room Air 04/10/23 14:57 Room Air 04/10/23 14:00 Room Air 04/10/23 13:00 Room Air 04/10/23 12:46 Room Air 04/10/23 12:30 Room Air 04/10/23 11:30 Room Air 04/10/23 11:00 Room Air 04/10/23 10:24 Room Air Intake and Output 04/10/23 04/11/23 04/11/23 23:59 07:59 15:59 Intake Total 880 / 880 Output Total 880 / 880 1450 / 1450 Balance 0 / 0 -1450 / -1450 Intake: Intake, Oral Amount 630 / 630 Intake, Total IV Amount 250 / 250 Potassium Phosphate 9 mmol In 0 250 / 250 .9 % Sodium Chloride 250 ml @ 63.75 mls/hr IV ONCE ONE Rx#: [id number] Output: Output, Urine Amount 525 / 525 1450 / 1450 Output, Emesis Amount 180 / 180 Output, Urine Amount (Catheter) 175 / 175 Gleason 175 / 175 Other: Number of Unmeasured Voids 0 Weight 68.039 kg Patient Weight 04/11/23 23:59 Weight 68.039 kg Laboratory Results - last 24 hr 04/10/23 10:30: WBC 15.9 H, RBC 5.31, Hgb 16.5, Hct 47.1, MCV 88.6, MCH 31.1, MCHC 35.1, RDW 15.2, Plt Count 459 H, MPV 8.9, Neut % (Auto) 86.4 H, Lymph % (Auto) 7.3 L, [place] % (Auto) 4.8, Eos % (Auto) 1.1, Baso % (Auto) 0.3, Neut # (Auto) 13.7 H, Lymph # (Auto) 1.2, [place] # (Auto) 0.8, Eos # (Auto) 0.2, Baso # (Auto) 0.1, Total Counted 100, Neutrophils % (Manual) 88 H, Lymphocytes % (Manual) 9 L, Monocytes % (Manual) 3, Platelet Estimate Slight increase, RBC Morphology Normal, ESR 21 H, Sodium 140, Potassium 1.7 L*, Chloride 105, Carbon Dioxide 23, Anion Gap 13.7, BUN 14, Creatinine 1.00, Estimated Creat Clear 102, Estimated GFR 87, Est GFR ( Amer) 105, Glucose 133 H, Calcium 9.6, Phosphorus 1.9 L, Magnesium 2.3, Total Bilirubin 0.9, AST 65 H, ALT 87 H, Alkaline Phosphatase 133 H, Total Creatine Kinase 921 H*, Troponin I 0.05 H, C-Reactive Protein 14.6 H, Total Protein 8.0, Albumin 4.6, Globulin 3.4 H, Albumin/Globulin Ratio 1.4 04/10/23 10:57: Urine Color Yellow, Urine Appearance Clear, Urine pH 7.5, Ur Specific [place] 1.010, Urine Protein 1+, Urine Glucose (UA) Negative, Urine Ketones Negative, Urine Blood Trace-i, Urine Nitrate Negative, Urine Bilirubin Negative, Urine Urobilinogen 0.2, Ur Leukocyte Esterase Negative, Urine RBC Occasional, Urine WBC None, Ur Squamous Epith Cells Occasional, Urine Bacteria Trace 04/10/23 11:15: Chlamy pneumoniae PCR TNP, Adenovirus (PCR) Not detected, B. pertussis DNA (PCR) TNP, Coronavirus OC43 (PCR) Not detected, Coronavirus HKU1 (PCR) Not detected, Coronavirus 229E (PCR) Not detected, SARS-CoV-2 (PCR) Not detected, Coronavirus NL63 (PCR) Not detected, Human Metapneumovir PCR Not detected, Influenza A (H1) PCR Not detected, Influ A (H1N1/09) PCR Not detected, Influenza A (H3) PCR Not detected, Influenza Type A (PCR) Not detected, Influenza Type B (PCR) Not detected, M. pneumoniae (PCR) TNP, Parainfluenza 1 (PCR) Not detected, Parainfluenza 2 (PCR) Not detected, Parainfluenza 3 (PCR) Not detected, Parainfluenza 4 (PCR) Not detected, RSV (PCR) Not detected, Entero/Rhino (PCR) Not detected 04/10/23 13:45: Troponin I 0.06 H, Free T4 0.86 04/10/23 16:50: Sodium 139, Potassium 2.2 L* D, Chloride 115 H, Carbon Dioxide 18 L, Anion Gap 8.2, BUN 12, Creatinine 0.80, Estimated Creat Clear 128, Estimated GFR 112, Est GFR ( Amer) 136 D, Glucose 124 H, Calcium 8.4, Phosphorus 1.8 L, Magnesium 2.4 H, Troponin I 0.06 H 04/11/23 00:19: Sodium 140, Potassium 1.6 L* D, Chloride 114 H, Carbon Dioxide 18 L, Anion Gap 9.6, BUN 11, Creatinine 0.80, Estimated Creat Clear 128, Estimated GFR 112, Est GFR ( Amer) 136, Glucose 104 H, Calcium 8.6, Phosphorus 2.5 D, Magnesium 2.4 H I & O for Labs for Last 24 Hours: Intake & Output 04/08/23 04/09/23 04/10/23 04/11/23 23:59 23:59 23:59 23:59 Intake Total 880 / 880 Output Total 880 / 880 1450 / 1450 Balance 0 / 0 -1450 / -1450 Weight 68.039 kg 68.039 kg Constitutional: Present no acute distress, thin, chronically ill appearing and cooperative Head: Present atraumatic and normocephalic Respiratory: Present normal respiratory effort; Absent rhonchi, wheezes or crackles Cardiac: Present Reg Rate and Rhythm GI: Present soft and normal bowel sounds; Absent distention or tenderness Extremities: Present normal inspection and full ROM; Absent edema Skin: Present intact; Absent erythema Neuro: Present Grossly Intact, alert, awake, oriented x 3 and moves all extremities Comment:: Strength 4/5 globally but improving. No tenderness with squeezing calves bilaterally. Assessment and Plan *Assessment and plan (1) Hypokalemic periodic paralysis: Status: Acute Category: Medical Code(s): G72.3 - Periodic paralysis (2) Generalized weakness: Status: Acute Category: Medical Code(s): R53.1 - Weakness (3) Hypophosphatasia: Status: Acute Category: Medical Code(s): E83.39 - Other disorders of phosphorus metabolism (4) Vitamin D deficiency: Status: Acute Category: Medical Code(s): E55.9 - Vitamin D deficiency, unspecified Plan 32-year-old male who presents with progressive ascending weakness. Severely depleted potassium and phosphorus. Concern for periodic paralysis due to hypokalemia. Discussed case with ER, request admission for aggressive repletion and monitoring for respiratory or cardiac collapse. Patient admitted to stepdown level of care. Continues to require inpatient management. Problems addressed as follows: Hypokalemic periodic paralysis Generalized weakness Hypophosphatemia -Potassium 2.0, phosphorus 2.5. Aggressive repletion with 20 mEq orally hourly x 10. Repeat potassium levels every 8 hours. Repeat phosphorus level this afternoon. Magnesium normal at 2.3. -Continue monitoring on telemetry, high risk for decompensation or cardiac arrhythmia. - Repeat CBC, CMP, magnesium ordered for the morning -IV K-Phos for phosphorus repletion 9 mmol this morning. -TSH levels normal. No signs of hyper or hypothyroid. -Repeat CK elevated 879. Repeat CK level ordered for the morning Vitamin D deficiency, vitamin D less than 12.8. Will initiate 50,000 units weekly Regular diet Full code
[2023-04-11 10:59] LABS: Basophils % 0.3 % (0.1-2.0); Eosinophils # 0.2 K/mm3 (0.0-0.4); Eosinophils % 2.9 % (0.1-12.0); Hematocrit 31.5 % (42.0-52.0); Lymphocytes # 1.9 K/mm3 (0.7-4.5); Lymphocytes % 23.5 % (10-50); Mean Corpuscular Hemoglobin 36.8 pg (27.0-31.2); Mean Corpuscular Volume 90.5 fl (80-94); Mean Platelet Volume 8.5 fl (7.4-10.4); Monocytes # 0.4 K/mm3 (0.1-1.0); Monocytes % 5.5 % (1.7-9.3); Neutrophils # 5.4 K/mm3 (1.8-7.8); Neutrophils % 67.9 % (37.0-80.0); Platelet Count 266 K/mm3 (142-424); Red Blood Count 3.48 M/mm3 (4.60-6.20); Red Cell Distribution Width 15.8 % (11.5-17.5); White Blood Count 7.9 K/mm3 (4.8-10.8)
[2023-04-11 11:01] LABS: Chloride 115 mmol/L (98-107); Sodium 141 mmol/L (136-145)
[2023-04-11 11:03] LABS: Alanine Aminotransferase 64 U/L (12-78); Aspartate Amino Transferase 55 U/L (17-59); Blood Urea Nitrogen 7 mg/dl (9-20); Carbon Dioxide 19 mmol/L (22.0-30.0); Creatine Kinase 879 U/L (55-170); Creatinine Clearance Estimated 128 mL/min (50-200); Estimated Glomerular Filt Rate 112 ml/min (>60); GFR (African American) 136 ML/MIN (>60)
[2023-04-11 11:04] LABS: Albumin Level 3.1 g/dl (3.5-5.0); Albumin/Globulin Ratio 1.2 (1.1-1.8); Alkaline Phosphatase 73 U/L (38-126); Bilirubin,Total 0.6 mg/dl (0.2-1.3); Globulin 2.6 g/dL (1.3-3.2); Glucose 109 mg/dl (74-100); Magnesium 2.3 mg/dl (1.6-2.3); Phosphorous 2.5 mg/dl (2.5-4.5); Total Protein,Serum 5.7 g/dl (6.3-8.2)
[2023-04-11 11:06] LABS: Mean Corpuscular HGB Conc 40.6 g/dL (31.8-35.4)
[2023-04-11 11:11] LABS: Hemoglobin 12.9 g/dL (14.1-18.0)
[2023-04-11 11:51] LABS: 25-OH Vitamin D, Total < 12.8 ng/mL (30-100)
[2023-04-11] MEDS: POTASSIUM CHLORIDE 20MEQ TAB 20 MEQ PO ×10 (12:34→20:18)
[2023-04-11] MEDS: POTASSIUM CHLORIDE 10 MEQ, LIDOCAINE HCL/PF 3 ML in 0.9 % SODIUM CHLORIDE 100 ML 108 MEQ IV ×3 (12:34→15:00)
[2023-04-11] MEDS: ERGOCALCIFEROL 50,000 UNITS (1.25MG) CAPSULE 50000 UNIT PO (15:33)
[2023-04-11 16:16] LABS: Chloride 118 mmol/L (98-107); Sodium 143 mmol/L (136-145)
[2023-04-11 16:20] LABS: Anion Gap 12.4 mEq/L (5-15); Blood Urea Nitrogen 6 mg/dl (9-20); Carbon Dioxide 15 mmol/L (22.0-30.0); Creatinine Clearance Estimated 146 mL/min (50-200); Estimated Glomerular Filt Rate 131 ml/min (>60); GFR (African American) 158 ML/MIN (>60); Glucose 120 mg/dl (74-100)
[2023-04-11 16:39] LABS: Potassium 2.4 mmoL/L (3.5-5.1)
--- NOTE | 2023-04-11 17:00 | PC.NURSE ---
spoke with MD regarding potassium results. nno
--- NOTE | 2023-04-11 17:58 | PC.NURSE ---
calderon discontinued. Pt is now up in the chair. clothes changed. SBA with transfer to chair.
[2023-04-11] MEDS: GABAPENTIN 100MG CAPSULE 100 MG PO (20:18)
[2023-04-11 22:18] LABS: Chloride 119 mmol/L (98-107); Potassium 3.4 mmoL/L (3.5-5.1); Sodium 141 mmol/L (136-145)
[2023-04-11 22:21] LABS: Anion Gap 6.4 mEq/L (5-15); Blood Urea Nitrogen 4 mg/dl (9-20); Calcium 7.9 mg/dl (8.4-10.2); Carbon Dioxide 19 mmol/L (22.0-30.0); Creatinine Clearance Estimated 146 mL/min (50-200); Estimated Glomerular Filt Rate 131 ml/min (>60); GFR (African American) 158 ML/MIN (>60); Glucose 98 mg/dl (74-100)
[2023-04-12] VITALS: BP 100/59; PULSE 60; PULSE 84; RESP 18; TEMP 36.6; O2SAT 98
[2023-04-12 04:00] VITALS: BP 109/62; PULSE 60; PULSE 77; RESP 20; TEMP 36.5; O2SAT 98; BMI 21.4
[2023-04-12 07:13] LABS: Basophils % 0.5 % (0.1-2.0); Eosinophils # 0.5 K/mm3 (0.0-0.4); Eosinophils % 5.3 % (0.1-12.0); Hematocrit 37.9 % (42.0-52.0); Hemoglobin 13.2 g/dL (14.1-18.0); Lymphocytes # 1.9 K/mm3 (0.7-4.5); Lymphocytes % 22.6 % (10-50); Mean Corpuscular HGB Conc 34.9 g/dL (31.8-35.4); Mean Corpuscular Hemoglobin 32.3 pg (27.0-31.2); Mean Corpuscular Volume 92.4 fl (80-94); Mean Platelet Volume 8.7 fl (7.4-10.4); Monocytes # 0.3 K/mm3 (0.1-1.0); Neutrophils # 5.7 K/mm3 (1.8-7.8); Neutrophils % 67.6 % (37.0-80.0); Platelet Count 319 K/mm3 (142-424); Red Cell Distribution Width 15.9 % (11.5-17.5); White Blood Count 8.5 K/mm3 (4.8-10.8)
[2023-04-12 08:00] VITALS: BP 113/66; PULSE 70; PULSE 74; RESP 16; TEMP 36.6; O2SAT 97
[2023-04-12 08:29] LABS: Chloride 122 mmol/L (98-107); Sodium 144 mmol/L (136-145)
[2023-04-12 08:30] LABS: Potassium 3.6 mmoL/L (3.5-5.1)
[2023-04-12 08:32] LABS: Alanine Aminotransferase 63 U/L (12-78); Albumin/Globulin Ratio 1.1 (1.1-1.8); Alkaline Phosphatase 80 U/L (38-126); Anion Gap 8.6 mEq/L (5-15); Aspartate Amino Transferase 84 U/L (17-59); Bilirubin,Total 0.6 mg/dl (0.2-1.3); Blood Urea Nitrogen 3 mg/dl (9-20); Carbon Dioxide 17 mmol/L (22.0-30.0); Creatinine Clearance Estimated 128 mL/min (50-200); Estimated Glomerular Filt Rate 112 ml/min (>60); GFR (African American) 136 ML/MIN (>60); Globulin 2.7 g/dL (1.3-3.2); Phosphorous 2.7 mg/dl (2.5-4.5); Total Protein,Serum 5.7 g/dl (6.3-8.2)
[2023-04-12 08:33] LABS: Calcium 8.2 mg/dl (8.4-10.2); Glucose 94 mg/dl (74-100); Magnesium 2.2 mg/dl (1.6-2.3)
[2023-04-12] MEDS: FOLIC ACID 1MG TABLET 1 MG PO (08:37)
[2023-04-12] MEDS: 0.9% NaCl w/40mEq KCL 1,000 ML 100 ML IV (08:37)
[2023-04-12 11:26] LABS: Vitamin B12 359 pg/mL (239-931)
[2023-04-12 12:00] VITALS: BP 105/66; PULSE 70; PULSE 77; RESP 16; O2SAT 100
[2023-04-12 12:10] LABS: Triiodothyronine (T3) Free 2.2 pg/mL (2.0-4.4)
[2023-04-12 14:24] LABS: Anion Gap 11.2 mEq/L (5-15); Blood Urea Nitrogen 2 mg/dl (9-20); Calcium 8.9 mg/dl (8.4-10.2); Carbon Dioxide 20 mmol/L (22.0-30.0); Chloride 117 mmol/L (98-107); Creatinine Clearance Estimated 128 mL/min (50-200); Estimated Glomerular Filt Rate 112 ml/min (>60); GFR (African American) 136 ML/MIN (>60); Glucose 93 mg/dl (74-100); Potassium 3.2 mmoL/L (3.5-5.1); Sodium 145 mmol/L (136-145)
--- NOTE | 2023-04-12 14:26 | P.DS_ITS ---
General Admission date:: 04/10/23 Discharge date: 04/12/23 HPI HPI HPI: Mr. Treviño is a 32-year-old male with previously benign past medical history. States that for the past week he has been noticing cramping that has progressed and gotten worse. Began in his shoulders and his legs. Has progressed with weakness in his legs and over the past 2 days having weakness in his arms. Came to the ER for further evaluation. Denies chest pain, shortness of breath, nausea or vomiting. Can move his toes but legs are very heavy and unable to walk. Does report an illness maybe a week ago with some congestion. Denies any fever or headache. ER concern for Guillain-Hill? initially. Workup showed severely depleted potassium at 1.7. Phosphorus 1.9. Patient does have reflexes in the lower extremities and movement of his feet. No respiratory distress. Symptoms most consistent with hypokalemic periodic paralysis. Initiated on oral repletion and medicine was consulted for admission. On arrival to the floor, patient is stable on room air. Tolerating p.o. intake with no nausea or vomiting. Monitoring on telemetry. Family at bedside. Reports his dad had a similar episode many years ago but no other known family history. Hospital Course Hospital Course Hospital Course: 32-year-old male who presents with progressive ascending weakness. Severely depleted potassium and phosphorus. Concern for periodic paralysis due to hypokalemia. Discussed case with ER, request admission for aggressive repletion and monitoring for respiratory or cardiac collapse. Patient admitted to stepdown level of care. Had gradual improvement in his potassium level. Differential diagnosis included Guillain-Hill? initially on admission however patient was globally weak and had normal respiratory effort/neph. Symptoms improved with potassium supplementation. Stable for discharge home. Problems addressed as follows: Hypokalemic paralysis Generalized weakness Hypophosphatemia -Patient presented with severely depleted potassium 1.7. Experiencing global weakness and inability to ambulate. Found to also have deficiencies in phosphorus and severe vitamin D deficiency. Was aggressively treated with oral and IV potassium replacement. Took over 48 hours for potassium to improve to the point that patient was above 3 and able to ambulate independently. Phosphorus levels corrected with IV potassium phosphate. Encouraged patient to eat which improved during his admission. Was monitored on telemetry due to high risk for decompensation and cardiac arrhythmia. Other screening labs including TSH showed that there was no hyper or hypothyroidism. Had mild rhabdomyolysis, likely secondary to paralysis and electrolyte disturbances. CK improving by day of discharge. Making adequate urine. No signs of kidney injury with normal creatinine. Differential diagnosis includes hypokalemic periodic paralysis, nutritional deficiency.suspect his hypokalemia underlies his paralysis but without genetic evidence to prove hypokalemic periodic paralysis, and this being his first episode, suspect condition mainly from severely restrictive diet. Patient states he is very picky, family provided additional information states that the patient has lost significant weight over the past year and eats very few things, avoids vegetables. Will continue multivitamin, recommended Flintstones as he cannot swallow pills and this is a chewable vitamin. Continue potassium supplementation. Discussed potassium rich foods including potatoes, tomatoes, bananas. Patient does like fruits. Recommend close follow-up with PCP with repeat labs in a week to monitor electrolytes. Stable for discharge home given persistent levels of potassium above 3 over 24 hours with minimal oral supplementation. Vitamin D deficiency, vitamin D less than 12.8. Initiate 50,000 units weekly. Continue at discharge. Exam Data for Last 24 hours Vital signs and Labs for Last 24 Hours: Temp Pulse Resp BP Pulse Ox O2 Del Method O2 Flow Rate 97.8 F 77 16 105/66 L 100 Room Air 2 04/12/23 08:00 04/12/23 12:00 04/12/23 12:00 04/12/23 12:00 04/12/23 12:00 04/12/23 13:00 04/10/23 23:00 Laboratory Results - last 24 hr 04/11/23 10:30: Free T3 2.2 04/11/23 15:15: Sodium 143, Potassium 2.4 L*, Chloride 118 H, Carbon Dioxide 15 L, Anion Gap 12.4, BUN 6 L, Creatinine 0.70, Estimated Creat Clear 146, Estimated GFR 131, Est GFR ( Amer) 158, Glucose 120 H, Calcium 8.0 L 04/11/23 22:00: Sodium 141, Potassium 3.4 L D, Chloride 119 H, Carbon Dioxide 19 L, Anion Gap 6.4, BUN 4 L D, Creatinine 0.70, Estimated Creat Clear 146, Estimated GFR 131, Est GFR ( Amer) 158, Glucose 98, Calcium 7.9 L 04/12/23 06:33: WBC 8.5, RBC 4.10 L, Hgb 13.2 L, Hct 37.9 L, MCV 92.4, MCH 32.3 H, MCHC 34.9, RDW 15.9, Plt Count 319, MPV 8.7, Neut % (Auto) 67.6, Lymph % (Auto) 22.6, [place] % (Auto) 4.0, Eos % (Auto) 5.3, Baso % (Auto) 0.5, Neut # (Auto) 5.7, Lymph # (Auto) 1.9, [place] # (Auto) 0.3, Eos # (Auto) 0.5 H, Baso # (Auto) 0.0, Sodium 144, Potassium 3.6, Chloride 122 H, Carbon Dioxide 17 L, Anion Gap 8.6, BUN 3 L, Creatinine 0.80, Estimated Creat Clear 128, Estimated GFR 112, Est GFR ( Amer) 136, Glucose 94, Calcium 8.2 L, Phosphorus 2.7, Magnesium 2.2, Total Bilirubin 0.6, AST 84 H D, ALT 63, Alkaline Phosphatase 80, Total Protein 5.7 L, Albumin 3.0 L, Globulin 2.7, Albumin/Globulin Ratio 1.1, Vitamin B12 359 I & O for Last 24 hours: Intake & Output 04/09/23 04/10/23 04/11/23 04/12/23 23:59 23:59 23:59 23:59 Intake Total 880 / 880 713 / 713 780 / 780 Output Total 880 / 880 3300 / 3550 850 / 850 Balance 0 / 0 -2587 / -2837 -70 / -70 Weight 68.039 kg 68.039 kg 68.039 kg Constitutional Constitutional: no acute distress, thin, chronically ill appearing and cooperative *Routine HEENT Exam Head: Present normocephalic Eye: Present EOMI and PERRL ENT: Present mucous membranes moist *Routine Neck Exam Neck: Present supple; Absent lymphadenopathy *Routine Respiratory Exam Respiratory: Present CTA bilaterally; Absent rhonchi, wheezes or crackles *Routine Cardiovascular Exam Cardiovascular: Present RRR *Routine Abdominal Exam Abdominal: Present soft and normoactive bowel sounds; Absent tenderness *Routine Extremities Exam Extremities: Absent cyanosis, clubbing or edema *Routine Skin Exam Skin: Present warm; Absent rash *Routine Neurological Exam Neurological: Present alert and oriented X3 Results Data Completed and Pending Labs on day of discharge: Labs from last 24 hours 04/12/23 04/11/23 04/11/23 06:33 22:00 15:15 WBC 8.5 RBC 4.10 L Hgb 13.2 L Hct 37.9 L MCV 92.4 MCH 32.3 H MCHC 34.9 RDW 15.9 Plt Count 319 MPV 8.7 Neut % (Auto) 67.6 Lymph % (Auto) 22.6 [place] % (Auto) 4.0 Eos % (Auto) 5.3 Baso % (Auto) 0.5 Neut # (Auto) 5.7 Lymph # (Auto) 1.9 [place] # (Auto) 0.3 Eos # (Auto) 0.5 H Baso # (Auto) 0.0 Sodium 144 141 143 Potassium 3.6 3.4 L D 2.4 L* Chloride 122 H 119 H 118 H Carbon Dioxide 17 L 19 L 15 L Anion Gap 8.6 6.4 12.4 BUN 3 L 4 L D 6 L Creatinine 0.80 0.70 0.70 Estimated Creat Clear 128 146 146 Estimated GFR 112 131 131 Est GFR ( Amer) 136 158 158 Glucose 94 98 120 H Calcium 8.2 L 7.9 L 8.0 L Phosphorus 2.7 Magnesium 2.2 Total Bilirubin 0.6 AST 84 H D ALT 63 Alkaline Phosphatase 80 Total Protein 5.7 L Albumin 3.0 L Globulin 2.7 Albumin/Globulin Ratio 1.1 Vitamin B12 359 Free T3 04/11/23 10:30 WBC RBC Hgb Hct MCV MCH MCHC RDW Plt Count MPV Neut % (Auto) Lymph % (Auto) [place] % (Auto) Eos % (Auto) Baso % (Auto) Neut # (Auto) Lymph # (Auto) [place] # (Auto) Eos # (Auto) Baso # (Auto) Sodium Potassium Chloride Carbon Dioxide Anion Gap BUN Creatinine Estimated Creat Clear Estimated GFR Est GFR ( Amer) Glucose Calcium Phosphorus Magnesium Total Bilirubin AST ALT Alkaline Phosphatase Total Protein Albumin Globulin Albumin/Globulin Ratio Vitamin B12 Free T3 2.2 DS: Diagnosis Discharge Diagnosis (1) Hypokalemic periodic paralysis: Status: Acute Code(s): G72.3 - Periodic paralysis (2) Generalized weakness: Status: Acute Code(s): R53.1 - Weakness (3) Hypophosphatasia: Status: Acute Code(s): E83.39 - Other disorders of phosphorus metabolism (4) Vitamin D deficiency: Status: Acute Code(s): E55.9 - Vitamin D deficiency, unspecified Meds Home Medications and Allergies Home Medications Medication Instructions Recorded Confirmed Type ergocalciferol (vitamin D2) 1,250 50,000 unit PO WEEKLY 30 days #4 04/12/23 Rx mcg (50,000 unit) capsule caps pediatric [id number] 1 tab PO DAILY 30 days #30 tabs 04/12/23 Rx (Flintstones Complete (iron) chewable tablet) potassium chloride 20 mEq 20 meq PO BID 30 days #60 tabs 04/12/23 Rx tablet,extended release(part/cryst) (Klor-Con M) New Prescriptions to Start Prescriptions: ergocalciferol (vitamin D2) Seth Bae pediatric [id number] [Flintstones Complete (iron)] Seth Bae potassium chloride [Klor-Con M20] Seth Bae Allergies Allergy/AdvReac Type Severity Reaction Status Date / Time Penicillins [PENICILLINS] Allergy Intermediate Verified 03/19/22 15:45 fluoxetine [From Prozac] Allergy Mild Hives Verified 03/19/22 15:45 sertraline [From Zoloft] Allergy Mild Hives Verified 03/19/22 15:45 Discharge Plan Disposition Patient Disposition: Home, Self-Care Condition: Good Discharge Order Discharge Orders: Discharge Order (Routine); Ordered 04/12/23 Ordered By: Seth Bae Follow up Plan Follow up with: Aftab Harvey APRN [Primary Care Provider] - 04/20/23 3:45 pm Prescriptions/Medication Reconciliation: New ergocalciferol (vitamin D2) 1,250 mcg (50,000 unit) Capsule 50,000 unit PO WEEKLY 30 Days Qty: 4 2RF potassium chloride [Klor-Con M20] 20 mEq Tablet,Er Particles/Crystals 20 meq PO BID 30 Days Qty: 60 0RF Flintstones Complete (iron) Tablet,Chewable 1 tab PO DAILY 30 Days Qty: 30 0RF Rx Instructions: administer with a meal Discontinued oxybutynin chloride 5 mg tablet extended release 24hr 5 mg PO DAILY Patient Comments: TAKE 1 TABLET BY MOUTH ONCE DAILY, DO NOT CRUSH,CHEW OR SPLIT Other Ambulatory Orders: Basic Metabolic Panel (Routine) Timeframe: 3 Days Facility: [facility] - Location: Laboratory Ordered By: Seth Bae Phosphorous (Routine) Timeframe: 3 Days Facility: [facility] - Location: Laboratory Ordered By: Seth Bae Problem Reconciliation Problems Reviewed?: Yes Patient Discharge Instructions ACTIVITY: Continue current activity DIET: continue same diet Patient Instructions: Periodic Paralysis Syndromes, DI for Hypokalemia, Catheter-Associated Urinary Tract Infection Providers Primary Care Provider: Aftab Harvey Admit Provider: Seth Bae Attending Provider: Seht Bae
[2023-04-12] MEDS: POTASSIUM CHLORIDE 20MEQ TAB 40 MEQ PO (15:11)
--- NOTE | 2023-04-12 16:07 | PC.NURSE ---
PT AWARE OF OUTPATIENT LABS ALONG WITH GRANDMOTHER. VERBALIZED UNDERSTANDING.
--- NOTE | 2023-04-15 13:42 | CARE MANAGER ---
CM called and spoke with patient regarding recent discharge. Patient aware of scheduled f/u appt, and has started new medication. No concerns voiced at time of call.
== END 2023-04-12 16:05 | disposition home or self-care (01) | DRG 641 ==
LOC: ER 12:11 → 2ND 13:20
PROVIDERS: Nurse Practitioner Family; Admitting Provider Internal Medicine Adolescent Medicine; Emergency Provider Student in an Organized Health Care Education/Training Program; PCP Nurse Practitioner Family; Visit Provider Internal Medicine Adolescent Medicine
DX: E87.6 Hypokalemia (principal); G72.3 Periodic paralysis; F41.9 Anxiety disorder, unspecified; F32.A Depression, unspecified; G43.909 Migraine, unspecified, not intractable, without status migrainosus; E83.39 Other disorders of phosphorus metabolism; E55.9 Vitamin D deficiency, unspecified
CPT/HCPCS: 36415; 80048; 80053; 81001; 82306; 82550; 82607; 83735; 84100; 84439; 84443; 84481; 84484; 85007; 85025; 85651; 86140; 87632; 87635; 93005; 99291; J2405

== ENCOUNTER 2023-04-19 12:34 | Outpatient (CLI) | payer MEDICAID, SELFPAY ==
[2023-04-19 12:51] LABS: Chloride 103 mmol/L (98-107)
[2023-04-19 12:52] LABS: Sodium 138 mmol/L (136-145)
[2023-04-19 12:54] LABS: Blood Urea Nitrogen 10 mg/dl (9-20); Estimated Glomerular Filt Rate 87 ml/min (>60); GFR (African American) 105 ML/MIN (>60)
[2023-04-19 12:55] LABS: Calcium 9.2 mg/dl (8.4-10.2); Carbon Dioxide 33 mmol/L (22.0-30.0); Glucose 67 mg/dl (74-100); Phosphorous 2.9 mg/dl (2.5-4.5)
== END 2023-04-19 23:59 ==
LOC: LAB.DROPOF 12:35
PROVIDERS: PCP Nurse Practitioner Family; Visit Provider Internal Medicine Adolescent Medicine
DX: G72.3 Periodic paralysis (principal); E83.39 Other disorders of phosphorus metabolism
CPT/HCPCS: 80048; 84100

== ENCOUNTER 2023-04-28 13:42 | Outpatient (CLI) | payer MEDICAID, SELFPAY ==
[2023-04-28 14:21] LABS: Chloride 103 mmol/L (98-107); Potassium 3.9 mmoL/L (3.5-5.1); Sodium 141 mmol/L (136-145)
[2023-04-28 14:24] LABS: Anion Gap 12.9 mEq/L (5-15); Blood Urea Nitrogen 6 mg/dl (9-20); Calcium 9.7 mg/dl (8.4-10.2); Carbon Dioxide 29 mmol/L (22.0-30.0); Estimated Glomerular Filt Rate 98 ml/min (>60); GFR (African American) 118 ML/MIN (>60); Glucose 84 mg/dl (74-100)
== END 2023-04-28 23:59 ==
LOC: LAB.DROPOF 13:42
PROVIDERS: PCP Nurse Practitioner Family; Visit Provider Nurse Practitioner Family
DX: G72.3 Periodic paralysis (principal); R79.89 Other specified abnormal findings of blood chemistry
CPT/HCPCS: 80048

== ENCOUNTER 2023-05-29 14:02 | Outpatient (CLI) | payer MEDICAID, SELFPAY ==
[2023-05-29 14:32] LABS: Chloride 103 mmol/L (98-107); Sodium 140 mmol/L (136-145)
[2023-05-29 14:33] LABS: Potassium 3.8 mmoL/L (3.5-5.1)
[2023-05-29 14:35] LABS: Blood Urea Nitrogen 9 mg/dl (9-20); Estimated Glomerular Filt Rate 112 ml/min (>60); GFR (African American) 136 ML/MIN (>60)
[2023-05-29 14:36] LABS: Anion Gap 10.8 mEq/L (5-15); Calcium 9.8 mg/dl (8.4-10.2); Carbon Dioxide 30 mmol/L (22.0-30.0); Glucose 105 mg/dl (74-100)
== END 2023-05-29 23:59 ==
LOC: LAB 14:02
PROVIDERS: PCP Nurse Practitioner Family; Visit Provider Nurse Practitioner Family
DX: G72.3 Periodic paralysis (principal)
CPT/HCPCS: 36415; 80048

== ENCOUNTER 2023-08-24 18:00 | Outpatient (CLI) | payer MEDICAID, SELFPAY ==
[2023-08-24 18:49] LABS: Basophils # 0.1 K/mm3 (0-0.2); Eosinophils # 0.5 K/mm3 (0.0-0.4); Eosinophils % 9.5 % (0.1-12.0); Hematocrit 43.3 % (42.0-52.0); Hemoglobin 14.6 g/dL (14.1-18.0); Lymphocytes # 1.5 K/mm3 (0.7-4.5); Lymphocytes % 26.9 % (10-50); Mean Corpuscular HGB Conc 33.8 g/dL (31.8-35.4); Mean Corpuscular Hemoglobin 31.1 pg (27.0-31.2); Mean Corpuscular Volume 92.1 fl (80-94); Mean Platelet Volume 9.8 fl (7.4-10.4); Monocytes # 0.3 K/mm3 (0.1-1.0); Monocytes % 5.1 % (1.7-9.3); Neutrophils # 3.1 K/mm3 (1.8-7.8); Neutrophils % 57.5 % (37.0-80.0); Platelet Count 332 K/mm3 (142-424); Red Cell Distribution Width 14.9 % (11.5-17.5); White Blood Count 5.4 K/mm3 (4.8-10.8)
[2023-08-24 19:19] LABS: Chloride 106 mmol/L (98-107); Sodium 140 mmol/L (136-145)
[2023-08-24 19:22] LABS: Alanine Aminotransferase 28 U/L (12-78); Albumin Level 4.4 g/dl (3.5-5.0); Albumin/Globulin Ratio 1.5 (1.1-1.8); Alkaline Phosphatase 64 U/L (38-126); Aspartate Amino Transferase 25 U/L (17-59); Bilirubin,Indirect 0.4 mg/dL (0.0-0.9); Bilirubin,Total 0.4 mg/dl (0.2-1.3); Bilirubin,Unconjugated 0.4 mg/dL (0.0-1.1); Blood Urea Nitrogen 14 mg/dl (9-20); Carbon Dioxide 24 mmol/L (22.0-30.0); Cholesterol 143 mg/dl (140-200); Estimated Glomerular Filt Rate 87 ml/min (>60); GFR (African American) 105 ML/MIN (>60); Globulin 2.9 g/dL (1.3-3.2); Glucose 77 mg/dl (74-100); Total Protein,Serum 7.3 g/dl (6.3-8.2); Triglycerides 94 mg/dl (30-150); VLDL Cholesterol 19 mg/dL (0-40)
[2023-08-24 19:23] LABS: Chol/HDL Ratio 3.6 (1-3.5); HDL Cholesterol 40 mg/dl (40-60)
[2023-08-24 19:32] LABS: Anion Gap 13.1 mEq/L (5-15); Potassium 3.1 mmoL/L (3.5-5.1)
[2023-08-24 19:34] LABS: Direct LDL Cholesterol 73.52 mg/dL (100-129)
[2023-08-24 19:57] LABS: Thyroid Stimulating Hormone 1.04 uIU/mL (0.465-4.68)
[2023-08-25 10:25] LABS: HIV (1&2) Antibody Rapid NON REACTIVE
[2023-08-26 13:02] LABS: HCV Ab Non Reactive (Non Reactive)
== END 2023-08-24 23:59 | disposition home or self-care (01) ==
LOC: LAB.DROPOF 08-25 09:06
PROVIDERS: PCP Nurse Practitioner Family; Visit Provider Nurse Practitioner Family
DX: E55.9 Vitamin D deficiency, unspecified (principal); R53.1 Weakness
CPT/HCPCS: 80050; 80053; 80061; 80076; 82306; 84443; 85025

== ENCOUNTER 2023-09-30 18:13 | Outpatient (CLI) | payer MEDICAID, SELFPAY ==
[2023-09-30 18:33] LABS: Anion Gap 11.1 mEq/L (5-15); Blood Urea Nitrogen 14 mg/dl (9-20); Calcium 9.8 mg/dl (8.4-10.2); Carbon Dioxide 30 mmol/L (22.0-30.0); Chloride 103 mmol/L (98-107); Estimated Glomerular Filt Rate 98 ml/min (>60); GFR (African American) 118 ML/MIN (>60); Glucose 88 mg/dl (74-100); Potassium 4.1 mmoL/L (3.5-5.1); Sodium 140 mmol/L (136-145)
== END 2023-09-30 23:59 | disposition home or self-care (01) ==
LOC: LAB.DROPOF 18:13
PROVIDERS: PCP Nurse Practitioner Family; Visit Provider Nurse Practitioner Family
DX: E87.6 Hypokalemia (principal)
CPT/HCPCS: 80048

== ENCOUNTER 2024-04-11 14:20 | Outpatient (CLI) | payer MEDICAID, SELFPAY ==
[2024-04-11 18:06] LABS: MANUAL DIFFERENTIAL MANUAL DIFFERENTIAL (MANUAL DIFF)
[2024-04-11 18:13] LABS: Basophils # 0.1 K/mm3 (0-0.2); Eosinophils # 0.6 K/mm3 (0.0-0.4); Eosinophils % 6.6 % (0.1-12.0); Hematocrit 40.2 % (42.0-52.0); Hemoglobin 14.1 g/dL (14.1-18.0); Lymphocytes # 1.6 K/mm3 (0.7-4.5); Lymphocytes % 19.1 % (10-50); Mean Corpuscular HGB Conc 35.1 g/dL (31.8-35.4); Mean Corpuscular Hemoglobin 30.5 pg (27.0-31.2); Mean Corpuscular Volume 86.8 fl (80-94); Mean Platelet Volume 11.3 fl (7.4-10.4); Monocytes # 0.5 K/mm3 (0.1-1.0); Neutrophils # 5.6 K/mm3 (1.8-7.8); Neutrophils % 67.2 % (37.0-80.0); Platelet Count 280 K/mm3 (142-424); Red Blood Count 4.63 M/mm3 (4.60-6.20); Red Cell Distribution Width 12.3 % (11.5-17.5); White Blood Count 8.3 K/mm3 (4.8-10.8)
[2024-04-11 18:40] LABS: Eosinophils % 7 % (0-3); Lymphocytes % 25 % (10-50); Monocytes % 5 % (2-9); Neutrophils % 63 % (42-76); Platelet Estimate Normal; RBC Morphology Normal; Total Cells Counted 100
[2024-04-11 18:44] LABS: Alanine Aminotransferase 202 U/L (12-78); Albumin Level 4.9 g/dl (3.5-5.0); Albumin/Globulin Ratio 2.3 (1.1-1.8); Alkaline Phosphatase 49 U/L (38-126); Anion Gap 16.9 mEq/L (5-15); Aspartate Amino Transferase 104 U/L (17-59); Bilirubin,Total 0.4 mg/dl (0.2-1.3); Blood Urea Nitrogen 15 mg/dl (9-20); Calcium 9.9 mg/dl (8.4-10.2); Carbon Dioxide 31 mmol/L (22.0-30.0); Chloride 94 mmol/L (98-107); Estimated Glomerular Filt Rate 97 ml/min (>60); GFR (African American) 118 ML/MIN (>60); Globulin 2.1 g/dL (1.3-3.2); Glucose 127 mg/dl (74-100); Potassium 3.9 mmoL/L (3.5-5.1); Sodium 138 mmol/L (136-145)
[2024-04-11 18:58] LABS: 25-OH Vitamin D, Total 44.6 ng/mL (30-100)
[2024-04-11 19:13] LABS: Thyroid Stimulating Hormone 1.04 uIU/mL (0.465-4.68)
== END 2024-04-11 23:59 | disposition home or self-care (01) ==
LOC: LAB.DROPOF 04-12 09:35
PROVIDERS: PCP Nurse Practitioner Family; Visit Provider Nurse Practitioner Family
DX: R53.1 Weakness (principal); E55.9 Vitamin D deficiency, unspecified; M54.6 Pain in thoracic spine; G89.29 Other chronic pain; E87.6 Hypokalemia; F33.1 Major depressive disorder, recurrent, moderate; F41.9 Anxiety disorder, unspecified
CPT/HCPCS: 80053; 82306; 84443; 85007; 85014; 85018; 85048; 85049

== ENCOUNTER 2024-05-30 16:16 | Outpatient (CLI) | payer MEDICAID, SELFPAY ==
--- NOTE | 2024-05-30 16:20 | XR_ITS ---
PROCEDURE INFORMATION: Exam: XR Thoracic Spine Exam date and time: 05/30/2024 4:21 PM Age: 33 years old Clinical indication: Pain in thoracic spine; Additional info: Back pain TECHNIQUE: Imaging protocol: Radiologic exam of the thoracic spine. Views: 3 views. COMPARISON: CT CHEST WO CON 07/25/2021 9:48 AM FINDINGS: Bones/joints: Normal anatomic alignment. Vertebral body heights are well preserved. Preserved intervertebral disc spaces. The spinal canal is patent. No acutely displaced fractures. No joint dislocation. No aggressive osseous lesions. Soft tissues: No acute findings in the included segments of the chest. No acute soft tissue findings. IMPRESSION: No acute skeletal pathology.
--- NOTE | 2024-05-30 16:20 | XR_ITS ---
PROCEDURE INFORMATION: Exam: XR Lumbosacral Spine Exam date and time: 05/30/2024 4:21 PM Age: 33 years old Clinical indication: Low back pain TECHNIQUE: Imaging protocol: Radiologic exam of the lumbosacral spine. Views: 2 or 3 views. COMPARISON: CR XR LUMBAR SPINE 2-3V 05/30/2024 4:21 PM FINDINGS: Bones/joints: Straightening of the lumbar lordosis, as could be seen with spasm or patient positioning. The bone density is normal for this patient's age. Vertebral body heights are well preserved. Preserved intervertebral disc spaces. The spinal canal is patent. No acutely displaced fractures. No joint dislocation. No aggressive osseous lesions. Soft tissues: No acute soft tissue findings. IMPRESSION: 1. No acute skeletal pathology. 2. Straightening of the lumbar lordosis, as could be seen with spasm or patient positioning.
== END 2024-05-30 23:59 | disposition home or self-care (01) ==
LOC: RAD 16:17
PROVIDERS: PCP Nurse Practitioner Family; Visit Provider Nurse Practitioner Family
DX: M54.6 Pain in thoracic spine (principal); G89.29 Other chronic pain; M54.50 Low back pain, unspecified
CPT/HCPCS: 72072; 72100

== ENCOUNTER 2024-06-27 13:39 | Outpatient (RCR) | payer MEDICAID, SELFPAY ==
--- NOTE | 2024-06-27 14:59 | HMH.PTOPEV ---
PT Outpatient Evaluation Rehab PT Outpatient Evaluation Start: 06/27/24 13:57 Freq: Status: Active Protocol: Document 06/27/24 13:57 TAMMIE (Rec: 06/27/24 14:59 TAMMIE [id number]) E-signed By Linda Valverde, PT Outpatient Therapy Subjective History Subjective History Pt is a 33 y/o male who reports chronic thoracolumbar pain. Pt reports he fell in 2020 trying to sit down and missed the chair due to drinking and thinks he may have fractured his tailbone, states worsening of pain since . Pt had xrays on 05/30/24 with lumbar spine findings of 1. No acute skeletal pathology. 2 .Straightening of the lumbar lordosis, as could be seen with spasm or patient positioning and thoracic spine findings of No acute skeletal pathology. Pt reports pain is located at the thoracolumbar junction and is aggravated by sitting down and laying down in any position. Pt reports if he lays on his sides for >10 minuets both legs go numb although this improves quickly with movement. Pt states he is only averaging 2 hours of sleep each night due to pain. Pt reports pain improves with standing and walking. Pt denies b/b dysfunction. Medical History: IBS, Anxiety, Depression, PTSD New diagnosis of cancer in past 12 No months? Chief Complaint Pain Symptom Type Ache,Dull Symptoms Relieved By Heat Symptoms Aggravated By Prone,Supine,Sitting Current Functional Limitations Sleeping,Sitting Symptom Description Constant but Variable Level of pain today (0-10) 3 Pain scale - at its best (0-10) 3 Pain scale - at its worst (0-10) 9 Lumbopelvic Eval Palapation tenderness bilateral thoracic spinal tenderness Yes: T11-12 lumbar spinal tenderness Yes: L1-L5 paraspinal tenderness Yes: thoracolumbar Lumbar/Sacral Palpation Findings Tenderness Lumbar/Sacral Palpation Overall Comment 2/4 TTP Accessory Movement T-spine Vertebrae Accessory Movements Central P/A [place] that Elicit Symptoms T11 bilateral T12 bilateral L-spine Vertebrae Accessory Movements Central P/A [place] that Elicit Symptoms L2 bilateral L3 bilateral L4 bilateral L5 bilateral Range of Motion Lumbar Spine Active Flexion Range of 65 Motion (degrees) Lumbar Spine Active Extension Range of 15 Motion (degrees) Left Lumbar Spine Lateral Flexion Active 10 Range of Motion (degrees) Right Lumbar Spine Lateral Flexion 10 Active Range of Motion (degrees) Manual Muscle Test Bilateral Knee Extension Strength Grade 5 Normal Knee Flexion Strength Grade 5 Normal Hip Flexion Strength Grade 5 Normal Hip Abduction Strength Grade 4 Good Hip Adduction Strength Grade 4 Good Hip Extension Strength Grade 4 Good Ankle Dorsiflexion Strength Grade 5 Normal Special Tests Hip Scouring (Quadrant) Test Negative Left,Negative Right Hip Foster (DARREN) Test Negative Left,Negative Right Sciatic Nerve Tension Test Negative Left,Negative Right Unilateral Straight Leg Raise (Lasegue) Negative Left,Negative Right Test Oswestry Index Section 1 Pain Intensity The pain comes and goes and is severe Section 2 Personal Care (Washing,Dresing) change my way of washing or dressing in order to avoid pain Section 3 Lifting I can only lift very light weights at most Section 4 Walking I have no pain when walking Section 5 Sitting Pain prevents me from sitting for more than 10 minutes Section 6 Standing I can stand as long as I want without pain Section 7 Sleeping Because of pain, my normal nights sleep is less than 2 hours sleep Section 8 Social Life Pain has restricted my social life and I do not go out often Section 9 Traveling I get extra pain while traveling, but it does not compel me to seek al Section 10 Changing Degreee of Pain My pain is gradually getting worse Score and Risk Level Oswestry Sc 26 Oswestry Risk Level Severe Disability Miscellaneous Dx PT Eval Objective Objective Fasciculations noted of the RLE with hamstring stretching and end range lumbar flexion with hamstring tightness noted R>L - Myoclonus, - Slump test Core strength: 4-/5 Outpatient Therapy Assessment Impairments Problems/Impairmments Palpation Tenderness,Impaired Range of Motion,Impaired Strength,Impaired Sitting, Subjective C/O Pain,Impaired Self Care/Self Management Prognosis Rehab Potential Good Comment Barriers to progress include pt only able to attend PT 1x/ week due to relying on others for transportation Clinical Impression Consistent with Diagnosis Yes Short Term Goals Number of Weeks 3 Decrease Subjective C/O Pain Yes: Improve pain at worst to 7/10 or less to improve overall QOL Improve Self Care/Self Management Yes Patient to be Ind w/ HEP Yes [facility] Goals Number of Weeks 6 Decreased Palpation Tenderness Yes: 0-1/4 TTP of thoracolumbar PS and SP Increase Range of Motion Yes: Improve lumbar AROM flex to at least 80, ext to 20 Increase Strength Yes: Improve core/BLE MMT to 4 +/5 grossly to assist with posure/function Increase Ability to Sit Yes: >10' with pain 5/10 or less to assist with travel/ function Decrease Subjective C/O Pain Yes: Improve pain at worst to 5/10 or less to improve overall QOL Improve Self Care/Self Management Yes: Report ability to sleep 6 -8 hours consistently without LBP Outpatient Therapy Plan of Care Treatment Plan May Include Therapeutic Exercise Including Home Yes Exercise Program Manual Therapy Techniques Yes Neuromuscular Re-education Yes Therapeutic Activities to Return to Yes Previous Functional/Work Level ADL/Self Care Education Yes Mechanical Traction Yes Dry Needling Yes Thermal Modalities Yes Electrical Stimulation Yes Ultrasound/Phonophoresis Yes Iontophoresis Yes Massage Yes Eval/Re-Eval Yes Frequency Times per week 2 Duration Number of Weeks 4-6 Addendums This patient is a candidate for social No or vocational rehab? Patient/Guardian verbally acknowledges Yes understanding of treatment program and consents to further treatment? Patient/Guardian verbally acknowledges Yes understanding of diagnosis, prognosis and goals for treatment? Eval Complexity PT Charges 98171 - Low Complexity Shoulder/Elbow Eval Shoulder Objective Measurements Elbow Objective Measurements PHYSICIAN CERTIFICATION: I certify the specified therapy services for Holland Treviño are required, authorized, and reviewed every 30 days.
== END 2024-06-27 23:59 | disposition home or self-care (01) ==
LOC: PT 13:39
PROVIDERS: Visit Provider Nurse Practitioner Family
DX: G89.29 Other chronic pain (principal); M54.6 Pain in thoracic spine; M54.50 Low back pain, unspecified
CPT/HCPCS: 97163

== ENCOUNTER 2024-07-19 12:57 | Outpatient (RCR) | payer MEDICAID, SELFPAY | END 2024-07-19 23:59 | disposition home or self-care (01) | LOC: PT 12:57 | PROVIDERS: PCP Nurse Practitioner Family; Visit Provider Nurse Practitioner Family | DX: M54.50 Low back pain, unspecified (principal); M54.6 Pain in thoracic spine; G89.29 Other chronic pain; M54.9 Dorsalgia, unspecified | CPT/HCPCS: 97014; 97110; G0283 ==

== ENCOUNTER 2024-08-01 10:59 | Outpatient (RCR) | payer MEDICAID, SELFPAY ==
--- NOTE | 2024-08-01 12:08 | HMH.RHREAS ---
Rehab Reassessment Rehab OP Re-assessment Start: 08/01/24 11:19 Freq: Status: Active Protocol: Document 08/01/24 11:52 [email or web address] (Rec: 08/01/24 12:08 TAMMIE [id number]) E-signed By Linda Valverde, PT Oswestry Index Section 1 Pain Intensity The pain comes and goes and is moderate Section 2 Personal Care ( change my way of washing or dressing in order to avoid Washing,Dresing) pain Section 3 Lifting I can lift heavy weights, but it gives me extra pain Section 4 Walking I have no pain when walking Section 5 Sitting Pain prevents me from sitting for more than one hour Section 6 Standing I can stand as long as I want without pain Section 7 Sleeping Because of my pain, my normal night's sleep is less than 4 hours Section 8 Social Life Pain has no significant effect on my social life apart from limiting Section 9 Traveling I get some pain when traveling, but none of my usual forms of travel m Section 10 Changing Degreee of My pain seems to be getting better, but improvement is Pain slow Score and Risk Level Oswestry Sc 13 Oswestry Risk Level Mild Disability Rehab Re-assessment Subjective Subjective Pt reports he feels ~15% improved since starting PT. Pt reports he is only able to attend PT one time per week due to relying on others for transportation although verbalizes compliance with HEP. Pt reports thoracolumbar junction pain as 6-7/10 at worst within the past week that continues to be aggravated by laying down and sitting down for prolonged periods described as a strain or tightness. Objective Objective Notes Palpation: 2/4 TTP of thoracolumbar junction Lumbar AROM: 80 flex, ext 15, LF 15 Assessment Progress Assessment Progressing as Expected Assessment Notes Pt has attended 2 PT treatment sessions since the initial evaluation along with a HEP with good tolerance . Pt demonstrated improved subjective report of pain, JANA score, and lumbar flexion AROM this date compared to the initial evaluation. Pt continues to report moderate-severe pain of the thoracolumbar junction aggravated by prolonged laying and sitting impairing sleep and travel. Overall, the pt would continue to benefit from skilled PT to further improve subjective report of pain, thoracolumbar mobility, hip/core strength and functional activity tolerance to improve overall QOL. Patient goals met ST/3 Goals Not Met LTG Revised Goals n/a Plan Plan Continue POC Frequency of Therapy 2x/week Duration of therapy 4 more weeks Time and Billing Re-Eval Time 12 Re-Eval Billing 0 Units Charge for PT No reassessment? Charge for OT No reassessment? PHYSICIAN CERTIFICATION: I certify the specified therapy services for Holland Trey Vannalexa are required, authorized, and reviewed every 30 days.
== END 2024-08-01 23:59 | disposition home or self-care (01) ==
LOC: PT 10:59
PROVIDERS: PCP Nurse Practitioner Family; Visit Provider Nurse Practitioner Family
DX: M54.50 Low back pain, unspecified (principal); M54.6 Pain in thoracic spine; G89.29 Other chronic pain; M54.9 Dorsalgia, unspecified
CPT/HCPCS: 97110

== ENCOUNTER 2024-11-01 15:47 | Outpatient (CLI) | payer MEDICAID, SELFPAY ==
[2024-11-01 20:34] LABS: Anion Gap 12.8 mEq/L (5-15); Blood Urea Nitrogen 10 mg/dl (9-20); Calcium 9.5 mg/dl (8.4-10.2); Carbon Dioxide 28 mmol/L (22.0-30.0); Chloride 101 mmol/L (98-107); Creatinine,Serum 0.80 mg/dl (0.66-1.25); Estimated Glomerular Filt Rate 111 ml/min (>60); GFR (African American) 135 ML/MIN (>60); Glucose 94 mg/dl (74-100); Potassium 3.8 mmoL/L (3.5-5.1); Sodium 138 mmol/L (136-145)
== END 2024-11-01 23:59 ==
LOC: LAB.DROPOF 11-03 08:20
PROVIDERS: PCP Nurse Practitioner Family; Visit Provider Nurse Practitioner Family
DX: E87.6 Hypokalemia (principal)
CPT/HCPCS: 80048